=== PATIENT | male | born 1990 | race Caucasian/White ===

== ENCOUNTER 2017-08-21 00:58 | Emergency (ER) | payer SELFPAY ==
[2017-08-21] MEDS ORDERED: ONDANSETRON HCL 4 MG/2 ML SOL IV ONE (01:08)
[2017-08-21] MEDS ORDERED: SODIUM CHLORIDE 0.9% 1000ML 1,000 ML IV ONE ×3 (01:08→02:25)
[2017-08-21] MEDS ORDERED: HYDROMORPHONE HCL 2 MG/ML SOL IV ONE (01:08)
[2017-08-21] MEDS ORDERED: HYDROMORPHONE HCL 2 MG/ML SOL ONE (01:10)
[2017-08-21] MEDS ORDERED: ONDANSETRON HCL 4 MG/2 ML SOL ONE (01:10)
[2017-08-21 01:43] VITALS: RESP 20; TEMP 97.2
[2017-08-21 02:00] LABS: CALCIUM 8.4 mg/dl (8.5-10.1); POTASSIUM 3.8 mMol/L (3.5-5.1)
[2017-08-21 02:32] LABS: APPEARANCE,URINE Slightly Cloudy; BILIRUBIN,URINE NEGATIVE (NEGATIVE); COLOR,URINE Yellow; GLUCOSE, URINE (UA) NEGATIVE (NEGATIVE); KETONES,URINE 1+ (NEGATIVE); LEUKOCYTE ESTERASE ,URINE TRACE (NEGATIVE); NITRATE,URINE NEGATIVE (NEGATIVE); OCCULT BLOOD,URINE 3+ (NEG-TRACE); PH,URINE 7.5; UROBILINOGEN,URINE 0.2 (0.2-1.0 EU)
[2017-08-21] MEDS ORDERED: APAP/OXYCODONE 325/5 TAB PO ONE (02:57)
[2017-08-21] MEDS ORDERED: ONDANSETRON 4 MG ODT BU ONE (02:57)
[2017-08-21] MEDS ORDERED: ONDANSETRON 4 MG ODT ONE (02:58)
[2017-08-21] MEDS ORDERED: APAP/OXYCODONE 325/5 TAB ONE (03:17)
[2017-08-21 04:19] VITALS: BP 144/85; PULSE 51; O2SAT 100
[2017-08-25 05:36] LABS: MEAN CORPUSCULAR HGB CONC 36.9 gm/dl (32.0-36.0)
== END 2017-08-21 04:15 | disposition home or self-care (01) | DRG 694 ==
LOC: ED 00:58
DX: N20.0 Calculus of kidney (principal); R11.2 Nausea with vomiting, unspecified
CPT/HCPCS: 80048; 81001; 85027; 87088; 96365; 96366; 96374; 96375; 99283; 99285; J1170; J2405; A9270-GY